=== PATIENT | male | born 1955 | race Caucasian/White ===

== ENCOUNTER → 2016-05-14 | Outpatient (REF) | payer BC, MEDICARE ==
[~2016-05-14] MED LIST: ATOR1TAB21 PO; MULT1TAB10 PO; OMEP40CA2 PO; PROA1AER INH
[2016-05-14 16:01] LABS: BASO % 0.4 % (0.0-1.0); EOS # 0.2 K/mm3 (0.0-0.50); EOS % 3.9 % (0.0-3.0); LARGE UNSTAINED CELL # 0.1 K/mm3 (0.0-0.4); LARGE UNSTAINED CELL % 2.3 % (0.0-4.0); LYMPH # 1.7 K/mm3 (1.5-4.5); MEAN CORPUSCULAR HEMOGLOBIN 30.7 pg (27.0-33.0); MEAN CORPUSCULAR VOLUME 90.5 fl (80.0-96.0); MONO # 0.3 K/mm3 (0.0-0.8); MONO % 6.6 % (0.0-5.0); NEUTROPHILS # 2.7 K/mm3 (1.8-7.7); NEUTROPHILS % 52.8 % (36.0-66.0); PLATELET COUNT, AUTOMATED 189 k/mm3 (150-450); WHITE BLOOD COUNT 5.1 K/mm3 (4.0-10.0)
[2016-05-14 16:45] LABS: ERYTHROCYTE SEDIMENTATION RATE 2 mm/hr (0-20)
[2016-05-16 15:16] LABS: Lyme Disease IgG/IgM Antibodie <0.91 ISR (0.00-0.90); Lyme Disease IgM Ab Quantitati <0.80 index (0.00-0.79)
== END | disposition home or self-care (01) ==
LOC: M LABDRAW1 15:29
PROVIDERS: ATTEND Orthopaedic Surgery
DX: G56.02 Carpal tunnel syndrome, left upper limb (principal)

== ENCOUNTER → 2016-05-28 | Outpatient (CLI) | payer BC, MEDICARE, SELFPAY ==
[~2016-05-28] VITALS: Ht 172.7 cm; Wt 83.9 kg
[~2016-05-28] MED LIST changes: +LIDOCAINE 2% INJ 100 MG/5 ML SYRINGE As Ordered ONE; +NS 1,000 ML IV SCH; +PROPOFOL 200 MG/20 ML VIAL As Ordered ONE
--- NOTE | 2016-05-28 10:32 | ROOR ---
Patient Name: Berry Sterling Procedure Date: 05/28/2016 10:06 AM Date of : 1955 Age: 61 Room: [facility] Gender: Male Note Status: Finalized Procedure: Colonoscopy Indications: Screening for colorectal malignant neoplasm Providers: Alfa NÚÑEZ MD Referring MD: Andreia Matthews DO Requesting Provider: Medicines: Monitored Anesthesia Care Complications: No immediate complications. Procedure: Pre-Anesthesia Assessment: - The heart rate, respiratory rate, oxygen saturations, blood pressure, adequacy of pulmonary ventilation, and response to care were monitored throughout the procedure. The Colonoscope was introduced through the anus and advanced to the cecum, identified by appendiceal orifice and ileocecal valve. The colonoscopy was performed without difficulty. The patient tolerated the procedure well. The quality of the bowel preparation was good. Findings: The perianal and digital rectal examinations were normal. (Exam: Complete, Prep: Good or Excellent.) Five sessile polyps were found in the sigmoid colon. The polyps were 4 to 5 mm in size. These polyps were removed with a cold snare. Resection and retrieval were complete. Four sessile polyps were found in the hepatic flexure and ascending colon. The polyps were 4 to 5 mm in size. These polyps were removed with a cold snare. Resection and retrieval were complete. The exam was otherwise without abnormality on direct and retroflexion views. Impression: - (Exam: Complete, Prep: Good or Excellent.) - Five 4 to 5 mm polyps in the sigmoid colon, removed with a cold snare. Resected and retrieved. - Four 4 to 5 mm polyps at the hepatic flexure and in the ascending colon, removed with a cold snare. Resected and retrieved. - The examination was otherwise normal on direct and retroflexion views. Recommendation: - Repeat colonoscopy in 3 years for surveillance. - Telephone endoscopist for pathology results in 2 weeks. Alfa Núñez MD Alfa NÚÑEZ MD 05/28/2016 10:32:20 AM This report has been signed electronically. Number of Addenda: 0 Note Initiated On: 05/28/2016 10:06 AM Estimated Blood Loss: Estimated blood loss: none.
[2016-05-28 11:01] VITALS: BP 123/64
== END ==
LOC: M OPP 08:47
PROVIDERS: ATTEND Internal Medicine Gastroenterology
DX: Z12.11 Encounter for screening for malignant neoplasm of colon (principal); D12.5 Benign neoplasm of sigmoid colon; D12.2 Benign neoplasm of ascending colon; D12.3 Benign neoplasm of transverse colon; J45.909 Unspecified asthma, uncomplicated; G47.30 Sleep apnea, unspecified; M19.90 Unspecified osteoarthritis, unspecified site; Z79.899 Other long term (current) drug therapy; Z88.0 Allergy status to penicillin

== ENCOUNTER → 2016-07-27 | Outpatient (REF) | payer BC ==
[~2016-07-27] MED LIST changes: -LIDOCAINE 2% INJ 100 MG/5 ML SYRINGE As Ordered ONE; -NS 1,000 ML IV SCH; -PROPOFOL 200 MG/20 ML VIAL As Ordered ONE
[2016-07-27 18:13] LABS: BASO % 0.4 % (0.0-1.0); EOS # 0.2 K/mm3 (0.0-0.50); EOS % 3.8 % (0.0-3.0); LARGE UNSTAINED CELL # 0.1 K/mm3 (0.0-0.4); LARGE UNSTAINED CELL % 1.8 % (0.0-4.0); LYMPH # 1.6 K/mm3 (1.5-4.5); LYMPH % 32.4 % (24.0-44.0); MEAN CORPUSCULAR HGB CONC 34.4 g/dl (32.0-36.5); MEAN CORPUSCULAR VOLUME 90.2 fl (80.0-96.0); MONO # 0.3 K/mm3 (0.0-0.8); MONO % 7.1 % (0.0-5.0); NEUTROPHILS # 2.6 K/mm3 (1.8-7.7); NEUTROPHILS % 54.6 % (36.0-66.0); PLATELET COUNT, AUTOMATED 195 k/mm3 (150-450); RED CELL DISTRIBUTION WIDTH 12.2 % (11.5-14.5); WHITE BLOOD COUNT 4.8 K/mm3 (4.0-10.0)
[2016-07-27 19:11] LABS: ALBUMIN/GLOBULIN RATIO 1.38 (1.00-1.93); ALKALINE PHOSPHATASE 83 U/L (45-117); ALT/SGPT 44 U/L (12-78); ANION GAP 10 MEQ/L (8-16); AST/SGOT 18 U/L (15-37); BILIRUBIN,TOTAL 0.6 MG/DL (0.2-1.0); BLOOD UREA NITROGEN 17 MG/DL (7-18); CALCIUM LEVEL 9.5 MG/DL (8.8-10.2); CARBON DIOXIDE LEVEL 26 MEQ/L (21-32); CHLORIDE LEVEL 107 MEQ/L (98-107); CREATININE FOR GFR 1.11 MG/DL (0.70-1.30); GLOMERULAR FILTRATION RATE > 60.0 (>49); GLUCOSE, FASTING 96 MG/DL (80-110); PERCENT SATURATION 40.8 % (19.7-37.4); POTASSIUM SERUM 4.1 MEQ/L (3.5-5.1); SODIUM LEVEL 143 MEQ/L (136-145); TOTAL IRON BINDING CAPACITY 292 UG/DL (250-450); TOTAL PROTEIN 6.9 GM/DL (6.4-8.2)
[2016-07-27 21:22] LABS: ERYTHROCYTE SEDIMENTATION RATE 1 mm/hr (0-20)
== END ==
LOC: M LABDRAW1 15:55
PROVIDERS: ATTEND Internal Medicine Rheumatology
DX: Z51.81 Encounter for therapeutic drug level monitoring (principal); Z79.899 Other long term (current) drug therapy; M35.9 Systemic involvement of connective tissue, unspecified; E83.110 Hereditary hemochromatosis

== ENCOUNTER → 2018-01-17 | Outpatient (REF) | payer BC ==
[2018-01-17 19:36] LABS: FERRITIN 262 NG/ML (26-388); IRON (FE) 132 UG/DL (65-175); PERCENT SATURATION 46.2 % (19.7-50.0); TOTAL IRON BINDING CAPACITY 286 UG/DL (250-450)
== END ==
LOC: M LAB REF 18:37
DX: D75.1 Secondary polycythemia (principal)
CPT/HCPCS: 83550

== ENCOUNTER → 2018-10-19 | Outpatient (CLI) | payer OTHER ==
[~2018-10-19] MED LIST changes: -PROA1AER INH; +PROAAER10 INH; +PROHANCE 279.3MG/ML 15ML VIAL (A9576) As Ordered ONE; +PROHANCE 279.3MG/ML 5ML VIAL (A9576) As Ordered ONE
--- NOTE | 2018-10-19 15:31 | REP ---
MRI SCAPULA WITH AND WITHOUT CONTRAST: TECHNIQUE: Multiple sequences obtained in the axial, coronal and sagittal planes prior to and following the intravenous administration of 16 mL ProHance. Correlation made with plane films from [facility] dated 01/28/2018. I see no evidence of bone lesion involving the scapula. Large spur is seen of the inferior glenoid. There is mild hypertrophic degenerative change with narrowing spurring at the acromioclavicular joint. There is moderate joint effusion, with fluid extending into the subcoracoid region as well as into the subacromial/subdeltoid bursae. There does appear to be a full thickness tear of the supraspinatus tendon. Other surrounding soft tissue structures appear unremarkable. IMPRESSION: Large spur of the inferior glenoid. No bone lesion seen of the scapula. No abnormal enhancement. Mild hypertrophic degenerative changes of the acromioclavicular joint. Full thickness tear supraspinatus tendon with moderate fluid in the subcoracoid region as well as in the subacromial/subdeltoid bursae. Electronically Signed by Christopher Dickerson MD 10/19/2018 04:37 P
== END ==
LOC: M RAD 13:13
PROVIDERS: ATTEND Physician Assistant
DX: M19.012 Primary osteoarthritis, left shoulder (principal)
CPT/HCPCS: 73220; A9576

== ENCOUNTER → 2019-01-01 | Outpatient (CLI) | payer MEDICARE, OTHER ==
[~2019-01-01] MED LIST changes: -OMEP40CA2 PO; +OMEP40CA97 PO; -PROHANCE 279.3MG/ML 15ML VIAL (A9576) As Ordered ONE; -PROHANCE 279.3MG/ML 5ML VIAL (A9576) As Ordered ONE
--- NOTE | 2019-01-03 22:24 | SLEEPCENT ---
DATE OF PROCEDURE: 01/01/2019 Ordered by: AYSHA Alvarez Nocturnal polysomnography was performed for evaluation of sleep physiology in this patient with history of snoring and comorbidities of acid reflux disease. 7 hours and 34 minutes of data were reviewed. There were only 108 minutes of sleep identified. Sleep latency was short at 6.5 minutes. REM latency was delayed at 179 minutes. Sleep architecture was poor with frequent periods of wake. Overall sleep efficiency was only 24%. The electrocardiogram showed a sinus rhythm with an average heart rate of 58 beats per minute. EEG showed coarsening in background. No focal events were identified. There were only 23 respiratory events identified of 10 seconds in duration or greater. However, the apnea-hypopnea index of 12.8 events were primarily obstructive, not exclusive to sleep stage nor body posture. Arousals from respiratory events occurred 13.3 times per hour and oxygen desaturations were seen into the upper 80s. Some limb activity was noted as well and limb movement arousal index was 6. IMPRESSION Obstructive sleep apnea syndrome (G47.33). Apnea-hypopnea index of 12.8. RECOMMENDATION: While the patient slept poorly in the sleep lab, the occurrence of sleep was marked by the emergence of significant respiratory disruption and given the frequency and severity of respiratory events, the patient should be encouraged to return to the sleep disorder center for pressure therapy. In the interim alcohol and sedative avoidance should be practiced and caution exercised during operation of motor vehicles.
== END ==
LOC: M SLEEP 20:00
PROVIDERS: ATTEND Nurse Practitioner Family
DX: G47.33 Obstructive sleep apnea (adult) (pediatric) (principal)

== ENCOUNTER → 2019-10-16 | Outpatient (CLI) | payer MEDICARE ==
[2019-10-16 18:15] LABS: BASO % 0.5 % (0.0-1.0); EOS # 0.1 10^3/uL (0.0-0.5); EOS % 2.4 % (0.0-3.0); HEMATOCRIT 48.9 % (42.0-52.0); LYMPH # 1.7 10^3/uL (1.5-5.0); LYMPH % 31.6 % (24.0-44.0); MEAN CORPUSCULAR HEMOGLOBIN 31.3 pg (27.0-33.0); MEAN CORPUSCULAR HGB CONC 34.8 g/dl (32.0-36.5); MEAN CORPUSCULAR VOLUME 90.1 fl (80.0-96.0); MONO # 0.5 10^3/uL (0.0-0.8); MONO % 8.4 % (0.0-5.0); NEUTROPHILS # 3.1 10^3/uL (1.5-8.5); NEUTROPHILS % 56.9 % (36.0-66.0); PLATELET COUNT, AUTOMATED 201 10^3/uL (150-450); RED BLOOD COUNT 5.43 10^6/uL (4.30-6.10); WHITE BLOOD COUNT 5.5 10^3/uL (4.0-10.0)
[2019-10-16 18:32] LABS: C REACTIVE PROTEIN QUANTITATIV < 0.30 MG/DL (0.00-0.30); RHEUMATOID FACTOR QUANT < 10.0 IU/ML (<15.0)
[2019-10-16 19:31] LABS: ERYTHROCYTE SEDIMENTATION RATE 2 mm/hr (0-20)
[2019-10-18 17:07] LABS: ANTINUCLEAR ANTIBODIES DIRECT Negative (Negative); Lyme Disease IgG/IgM Antibodie <0.91 ISR (0.00-0.90); Lyme Disease IgM Ab Quantitati <0.80 index (0.00-0.79)
== END ==
LOC: M LAB 17:38
PROVIDERS: ATTEND Orthopaedic Surgery
DX: M65.312 Trigger thumb, left thumb (principal)

== ENCOUNTER 2020-12-05 20:30 | Emergency (ER) | payer MEDICARE ==
[~2020-12-05] VITALS: Ht 182.9 cm; Wt 84.1 kg
[~2020-12-05 20:30] MED LIST changes: +OMEP40CA4 PO; -OMEP40CA97 PO
[2020-12-05] MEDS ORDERED: LIDOCAINE 2% W/EPINEPHRINE 20ML VIAL **PRES FREE INFIL ONE (20:50)
[2020-12-05] MEDS ORDERED: MORPHINE 2 MG/ML 1ML VIAL (J2270) IV ONE (20:55)
--- NOTE | 2020-12-05 21:46 | REPVR ---
PROCEDURE INFORMATION: Exam: XR Left Femur Exam date and time: 12/05/2020 8:49 PM Age: 65 years old Clinical indication: Other: Foreign body; Additional info: Look for foreign body TECHNIQUE: Imaging protocol: XR Left femur. Views: 2 views. COMPARISON: No relevant prior studies available. FINDINGS: Bones/joints: Unremarkable. No acute fracture. Soft tissues: Unremarkable. No radiopaque foreign body demonstrated. IMPRESSION: No acute findings. Electronically signed by: Sylvain Gracia On 12/05/2020 21:45:21 PM
[2020-12-05] MEDS ORDERED: MORPHINE 4 MG/ML 1ML VIAL/SYRINGE (J2270) IV ONE (22:20)
[2020-12-05] MEDS ORDERED: CEPH500C PO (23:07)
[2020-12-05] MEDS ORDERED: CEPHALEXIN 500 MG CAP PO ONE (23:10)
[2020-12-05] MEDS ORDERED: BACITRACIN OINTMENT 30GM TUBE TOP ONE (23:15)
[2020-12-05] MEDS ORDERED: NEOSPORIN OINT 0.9 GM PKT TOP ONE (23:20)
[2020-12-05 23:30] VITALS: BP 126/82
== END 2020-12-05 23:30 | disposition home or self-care (01) ==
LOC: M ED 20:30
DX: S71.112A Laceration without foreign body, left thigh, initial encounter (principal); W29.3XXA Contact with powered garden and outdoor hand tools and machinery, initial encounter; Y92.018 Other place in single-family (private) house as the place of occurrence of the external cause; J45.909 Unspecified asthma, uncomplicated; E78.5 Hyperlipidemia, unspecified; K21.9 Gastro-esophageal reflux disease without esophagitis; Z79.899 Other long term (current) drug therapy; Z88.0 Allergy status to penicillin
CPT/HCPCS: 73552; 96374; 96376; 99284; J2270

== ENCOUNTER → 2024-01-05 | Outpatient (CLI) | payer MEDICARE ==
[~2024-01-05] MED LIST changes: +CEPH500C PO
== END ==
LOC: M WUC 11:50
PROVIDERS: ATTEND Nurse Practitioner Adult Health
DX: M54.30 Sciatica, unspecified side (principal)

== ENCOUNTER → 2025-01-18 | Outpatient (REF) | payer MEDICARE, BC ==
[~2025-01-18] MED LIST changes: +ACET-1593 PO; +ELIQ2.5T PO; +ELIQ5TAB; +LOVE1INJ SC; +OMEP-173 PO
== END ==
LOC: M LAB REF 18:36
PROVIDERS: ATTEND Nurse Practitioner Adult Health
DX: I82.4Z1 Acute embolism and thrombosis of unspecified deep veins of right distal lower extremity (principal); Z79.01 Long term (current) use of anticoagulants; R60.0 Localized edema